=== PATIENT | male | born 2000 | race American Indian/Alaskan Native ===

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

== ENCOUNTER 2022-01-22 20:47 | Emergency (ER) | payer SELFPAY ==
[2022-01-22] MEDS ORDERED: Amoxicillin/Clavulanate K 875-125 MG Tab PO ONE (20:56)
== END 2022-01-22 21:15 | disposition home or self-care (01) ==
LOC: DL.ED 20:47
DX: S60.477A Other superficial bite of left little finger, initial encounter (principal); W50.3XXA Accidental bite by another person, initial encounter
CPT/HCPCS: 99282; 99283; A9270-GY

== ENCOUNTER 2024-07-13 14:45 | Emergency (ER) | payer OTHER ==
[2024-07-13 15:23] LABS: HEMATOCRIT 45.5 % (40.0-54.0); HEMOGLOBIN 15.3 g/dL (14.0-18.0); MEAN CORPUSCULAR HEMOGLOBIN 29.5 pg (27.0-34.0); MEAN CORPUSCULAR HGB CONC 33.6 g/dL (33.0-35.0); MEAN CORPUSCULAR VOLUME 87.7 fL (80-100); PLATELET COUNT,PLT 313 10^3/uL (150-450); RED BLOOD CELL COUNT 5.19 10^6/uL (4.6-6.2); WHITE BLOOD CELL COUNT,WBC 7.1 10^3/uL (5.0-10.0)
[2024-07-13 15:25] LABS: BASOPHILS PERCENT AUTO 0.4 % (0.0-1.0); EOSINOPHILS PERCENT AUTO 1.3 % (1.0-3.0); MONOCYTES PERCENT AUTO 6.5 % (2-8); NEUTROPHILS PERCENT AUTO 73.8 % (42.2-75.2)
[2024-07-13 15:35] LABS: A/G RATIO 0.8; ALANINE AMINOTRANSFERASE,ALT 78 U/L (16-63); ALBUMIN 4.1 g/dL (3.4-5.0); ALKALINE PHOSPHATASE 148 U/L (46-116); ANION GAP 15.6 mEq/L (7-13); ASPARTATE AMNIOTRANSFERASE,AST 48 U/L (15-37); BILIRUBIN TOTAL 1.1 mg/dL (0.2-1.0); BLOOD UREA NITROGEN,BUN 10 mg/dL (7-18); BUN/CREATININE RATIO 10.1 (No establ ref range); CALCIUM 9.5 mg/dL (8.5-10.1); CARBON DIOXIDE,CO2 23 mmol/L (21-32); CHLORIDE,CL 106 mmol/L (98-107); CREATININE 0.99 mg/dL (0.70-1.30); ETHANOL BLOOD MEDICAL 107 mg/dL (0); GLUCOSE RANDOM 109 mg/dL (70-99); LIPASE 35 U/L (16-77); POTASSIUM,K 3.6 mmol/L (3.5-5.1); PROTEIN TOTAL,TP 9.2 g/dL (6.4-8.2); SODIUM,NA 141 mmol/L (136-145)
[2024-07-13 15:38] LABS: ESTIMATED GFR 110 mL/min (>=60)
[2024-07-13 15:47] LABS: LYMPHOCYTES PERCENT MAN 14 % (20-50); MONOCYTES PERCENT MAN 6 % (2-8); SEG NEUTROPHILS PERCENT MAN 80 % (42-75)
== END 2024-07-13 16:35 | disposition home or self-care (01) ==
LOC: DL.ED 14:45
DX: S63.502A Unspecified sprain of left wrist, initial encounter (principal); S16.1XXA Strain of muscle, fascia and tendon at neck level, initial encounter; F10.129 Alcohol abuse with intoxication, unspecified; V48.6XXA Car passenger injured in noncollision transport accident in traffic accident, initial encounter
CPT/HCPCS: 36415; 70450; 71045; 72125; 73080-LT; 73090-LT; 73562-RT; 80053; 80307; 83690; 85025; 93005; 93010; 99284; 99285